=== PATIENT | female | born 1970 | race Caucasian/White ===

== ENCOUNTER → 2017-01-07 | Outpatient (CLI) | payer OTHER | LOC: NM 12:38 | DX: R11.0 Nausea (principal); R19.7 Diarrhea, unspecified | CPT/HCPCS: 78264 ==

== ENCOUNTER → 2020-10-14 | Outpatient (CLI) | payer BC, OTHER ==
[~2020-10-14] MED LIST: ALENDRONATE SOD10 MG PO; ALPRAZOLAM0.5 MG PO; BUTALB-ACETAMI1 EACH PO; CALCIUM CARBON600 MG PO; FENOFIBRATE160 MG PO; GABAPENTIN600 MG PO; IMITREX50 MG PO; LEVAQUIN500 MG PO; LEXAPRO10 MG PO; LIPITOR TAB 2020 MG PO; LISINOPRIL20 MG PO; LOPRESSOR 25 MG25 MG PO; MIRTAZAPINE30 MG PO; PREMARIN0.625 MG PO; PRINIVIL10 MG PO; PRISTIQ ER50 MG PO; REMERON30 MG PO; TOPAMAX 100 MG100 MG PO; TOPIRAMATE50 MG PO; VITAMIN D21250 MCG PO; WELLBUTRIN XL300 MG PO; ZANTAC150 MG PO
== END ==
LOC: KOH-I 10:00
DX: S92.511A Displaced fracture of proximal phalanx of right lesser toe(s), initial encounter for closed fracture (principal)
CPT/HCPCS: 73630

== ENCOUNTER → 2020-11-07 | Outpatient (CLI) | payer BC, OTHER | LOC: KOH-I 15:41 | DX: S92.911D Unspecified fracture of right toe(s), subsequent encounter for fracture with routine healing (principal) | CPT/HCPCS: 73630 ==

== ENCOUNTER → 2020-11-19 | Outpatient (CLI) | payer BC, OTHER | LOC: EXRD 12:48 | DX: Z00.00 Encounter for general adult medical examination without abnormal findings (principal); N95.1 Menopausal and female climacteric states; M85.832 Other specified disorders of bone density and structure, left forearm | CPT/HCPCS: 77080 ==

== ENCOUNTER → 2020-11-26 | Outpatient (CLI) | payer BC, OTHER | LOC: KOH-I 15:17 | DX: S92.351A Displaced fracture of fifth metatarsal bone, right foot, initial encounter for closed fracture (principal); S92.911A Unspecified fracture of right toe(s), initial encounter for closed fracture | CPT/HCPCS: 73630 ==

== ENCOUNTER → 2020-12-16 | Outpatient (CLI) | payer BC, OTHER | LOC: KOH-I 10:33 | DX: M25.571 Pain in right ankle and joints of right foot (principal); S92.351A Displaced fracture of fifth metatarsal bone, right foot, initial encounter for closed fracture | CPT/HCPCS: 73610; 73630 ==

== ENCOUNTER 2021-01-22 10:29 | Observation (INO) | payer BC, OTHER ==
[~2021-01-22] VITALS: Ht 165.1 cm; Wt 125.2 kg
[~2021-01-22 10:29] MED LIST changes: -ALENDRONATE SOD10 MG PO; -ALPRAZOLAM0.5 MG PO; -BUTALB-ACETAMI1 EACH PO; -CALCIUM CARBON600 MG PO; -GABAPENTIN600 MG PO; -IMITREX50 MG PO; -LEXAPRO10 MG PO; -LISINOPRIL20 MG PO; -LOPRESSOR 25 MG25 MG PO; -MIRTAZAPINE30 MG PO; -TOPAMAX 100 MG100 MG PO; -TOPIRAMATE50 MG PO; -VITAMIN D21250 MCG PO; -WELLBUTRIN XL300 MG PO
[2021-01-22 12:12] LABS: HEMOGLOBIN 13.2 gm/dl (12.3-15.3); RED BLOOD COUNT 4.67 M/UL (4.00-5.10); WHITE BLOOD COUNT 15.8 K/UL (4.5-11.0)
[2021-01-22 12:42] LABS: BUN/CREATININE RATIO 22 (0-10)
[2021-01-22] MEDS ORDERED: PREMARIN0.625 MG PO (13:13)
[2021-01-22] MEDS ORDERED: TOPIRAMATE50 MG PO (13:15)
[2021-01-22] MEDS ORDERED: FENOFIBRATE160 MG PO (13:16)
[2021-01-22] MEDS ORDERED: WELLBUTRIN XL300 MG PO (13:16)
[2021-01-22] MEDS ORDERED: LOPRESSOR 25 MG25 MG PO ×2 (13:17→15:58)
[2021-01-22] MEDS ORDERED: MIRTAZAPINE30 MG PO (13:17)
[2021-01-22] MEDS ORDERED: LEXAPRO10 MG PO (13:18)
[2021-01-22] MEDS ORDERED: ALENDRONATE SOD10 MG PO (13:19)
[2021-01-22] MEDS ORDERED: LISINOPRIL20 MG PO (13:19)
[2021-01-22] MEDS ORDERED: CALCIUM CARBON600 MG PO (13:25)
[2021-01-22] MEDS ORDERED: BUTALB-ACETAMI1 EACH PO (16:00)
[2021-01-22] MEDS ORDERED: ALPRAZOLAM0.5 MG PO (16:01)
[2021-01-22] MEDS ORDERED: GABAPENTIN600 MG PO (16:02)
[2021-01-22] MEDS ORDERED: VITAMIN D21250 MCG PO (16:03)
[2021-01-23] MEDS ORDERED: TOPAMAX 100 MG100 MG PO (08:44)
[2021-01-23] MEDS ORDERED: IMITREX50 MG PO (09:05)
[2021-03-24] MEDS ORDERED: IBU800 MG PO (09:08)
[2021-03-24] MEDS ORDERED: ZOFRAN ODT 4 MG4 MG PO (09:09)
[2021-03-24] MEDS ORDERED: RIZATRIPTAN10 M1 PO (09:11)
== END 2021-01-23 10:30 | disposition home or self-care (01) ==
LOC: ER1 10:29 → MED SURG 4 12:54 → CDU 12:54 → MED SURG 4 14:40
PROVIDERS: Family Medicine; ADMIT Internal Medicine
DX: R29.810 Facial weakness (principal); C91.10 Chronic lymphocytic leukemia of B-cell type not having achieved remission; I10 Essential (primary) hypertension; E78.5 Hyperlipidemia, unspecified; G43.909 Migraine, unspecified, not intractable, without status migrainosus; F41.9 Anxiety disorder, unspecified; F32.9 Major depressive disorder, single episode, unspecified; Z20.822 Contact with and (suspected) exposure to COVID-19; Z79.899 Other long term (current) drug therapy; Z88.0 Allergy status to penicillin; Z88.1 Allergy status to other antibiotic agents; Z87.891 Personal history of nicotine dependence; Z86.73 Personal history of transient ischemic attack (TIA), and cerebral infarction without residual deficits
CPT/HCPCS: 70450; 70551; 80053; 81001; 82550; 82553; 83874; 84484; 85025; 93005; 93880; 96374; 96375; 96376; 99285; G0378; J2270; J2405; U0002

== ENCOUNTER → 2021-01-28 | Outpatient (CLI) | payer BC ==
[~2021-01-28] MED LIST changes: +ALENDRONATE SOD10 MG PO; +ALPRAZOLAM0.5 MG PO; +BUTALB-ACETAMI1 EACH PO; +CALCIUM CARBON600 MG PO; +GABAPENTIN600 MG PO; +IBU800 MG PO; +IMITREX50 MG PO; +LEXAPRO10 MG PO; +LISINOPRIL20 MG PO; +LOPRESSOR 25 MG25 MG PO; +MIRTAZAPINE30 MG PO; +RIZATRIPTAN10 M1 PO; +TOPAMAX 100 MG100 MG PO; +TOPIRAMATE50 MG PO; +VITAMIN D21250 MCG PO; +WELLBUTRIN XL300 MG PO; +ZOFRAN ODT 4 MG4 MG PO
== END ==
LOC: KOH-I 10:59
DX: S92.911D Unspecified fracture of right toe(s), subsequent encounter for fracture with routine healing (principal)
CPT/HCPCS: 73610; 73630

== ENCOUNTER → 2021-02-07 | Outpatient (CLI) | payer BC | LOC: EMI 08:21 | DX: S82.51XA Displaced fracture of medial malleolus of right tibia, initial encounter for closed fracture (principal); S92.351A Displaced fracture of fifth metatarsal bone, right foot, initial encounter for closed fracture | CPT/HCPCS: 73718; 73721 ==

== ENCOUNTER → 2021-03-24 | Outpatient (CLI) | payer BC ==
[2021-03-24 08:02] LABS: HEMOGLOBIN 12.8 gm/dl (12.3-15.3); RED BLOOD COUNT 4.29 M/UL (4.00-5.10); WHITE BLOOD COUNT 13.9 K/UL (4.5-11.0)
== END ==
LOC: OPSV2 07:26
PROVIDERS: Podiatrist Foot & Ankle Surgery
DX: Z01.812 Encounter for preprocedural laboratory examination (principal)
CPT/HCPCS: 36415; 80048; 85027

== ENCOUNTER 2021-04-28 21:11 | Emergency (ER) | payer BC ==
[2021-04-29] MEDS ORDERED: PERCOCET 5-3251 EACH PO (01:46)
== END 2021-04-29 04:14 | disposition home or self-care (01) ==
LOC: ER1 21:11
DX: S82.432A Displaced oblique fracture of shaft of left fibula, initial encounter for closed fracture (principal); X50.1XXA Overexertion from prolonged static or awkward postures, initial encounter; Y92.009 Unspecified place in unspecified non-institutional (private) residence as the place of occurrence of the external cause
CPT/HCPCS: 27840; 73610; 96374; 96375; 99152; 99283; J1170; J2405; J2704

== ENCOUNTER 2021-08-15 22:50 | Inpatient (IN) | payer BC ==
[~2021-08-15] VITALS: Ht 165.1 cm; Wt 93.0 kg
[~2021-08-15 22:50] MED LIST changes: -LEXAPRO10 MG PO; +LEXAPRO20 MG PO; +PERCOCET 5-3251 EACH PO
[2021-08-15 23:34] LABS: HEMOGLOBIN 12.5 gm/dl (12.3-15.3); RED BLOOD COUNT 4.16 M/UL (4.00-5.10); WHITE BLOOD COUNT 14.6 K/UL (4.5-11.0)
[2021-08-16 00:07] LABS: BUN/CREATININE RATIO 19 (0-10)
[2021-08-16] MEDS ORDERED: BENZONATATE200 MG PO (10:15)
[2021-08-16] MEDS ORDERED: PROMETHAZINE HC25 M1 PO (10:17)
[2021-08-16] MEDS ORDERED: SUMATRIPTAN SUC50 MG PO (10:18)
[2021-08-16] MEDS ORDERED: TOPIRAMATE50 MG PO ×2 (10:19)
[2021-08-16] MEDS ORDERED: TYLENOL EXTRA500 MG PO (10:20)
[2021-08-16] MEDS ORDERED: MULTIVITAMIN1 EACH PO (10:20)
[2021-08-17 07:52] LABS: HEMOGLOBIN 11.2 gm/dl (12.3-15.3); RED BLOOD COUNT 3.82 M/UL (4.00-5.10)
[2021-08-17 08:08] LABS: WHITE BLOOD COUNT 8.9 K/UL (4.5-11.0)
[2021-08-18 04:53] LABS: HEMOGLOBIN 11.1 gm/dl (12.3-15.3); RED BLOOD COUNT 3.74 M/UL (4.00-5.10)
[2021-08-18 05:23] LABS: WHITE BLOOD COUNT 11.2 K/UL (4.5-11.0)
[2021-08-19 04:47] LABS: HEMOGLOBIN 11.3 gm/dl (12.3-15.3); RED BLOOD COUNT 3.84 M/UL (4.00-5.10)
[2021-08-20 06:51] LABS: HEMOGLOBIN 11.4 gm/dl (12.3-15.3); RED BLOOD COUNT 3.85 M/UL (4.00-5.10)
[2021-08-20 07:00] LABS: WHITE BLOOD COUNT 17.1 K/UL (4.5-11.0)
[2021-08-20] MEDS ORDERED: PROAIR HFA8.5 GM INH (08:59)
[2021-08-20] MEDS ORDERED: DECADRON6 MG PO (08:59)
== END 2021-08-20 15:13 | disposition home or self-care (01) | DRG 682 ==
LOC: ER1 22:50 → M/S 08-16 07:50 → CDU 08-16 07:50 → M/S 08-16 13:13
PROVIDERS: Internal Medicine; Physician Assistant; Physician Assistant Medical; Preventive Medicine Occupational Medicine; ADMIT Internal Medicine
PROC: 8E0ZXY6 Isolation (ICD-10-PCS; principal; 2021-08-16)
PROC: 3E0333Z Introduction of Anti-inflammatory into Peripheral Vein, Percutaneous Approach (ICD-10-PCS; 2021-08-16)
PROC: XW033E5 Introduction of Remdesivir Anti-infective into Peripheral Vein, Percutaneous Approach, New Technology Group 5 (ICD-10-PCS; 2021-08-16)
DX: N17.9 Acute kidney failure, unspecified (principal); U07.1 COVID-19; J96.01 Acute respiratory failure with hypoxia; G43.909 Migraine, unspecified, not intractable, without status migrainosus; F41.9 Anxiety disorder, unspecified; I95.9 Hypotension, unspecified; I12.9 Hypertensive chronic kidney disease with stage 1 through stage 4 chronic kidney disease, or unspecified chronic kidney disease; N18.30 Chronic kidney disease, stage 3 unspecified; F32.A Depression, unspecified; E66.01 Morbid (severe) obesity due to excess calories; E78.5 Hyperlipidemia, unspecified; Z85.6 Personal history of leukemia; Z86.73 Personal history of transient ischemic attack (TIA), and cerebral infarction without residual deficits; Z90.710 Acquired absence of both cervix and uterus; Z88.1 Allergy status to other antibiotic agents; Z88.0 Allergy status to penicillin; Z82.49 Family history of ischemic heart disease and other diseases of the circulatory system; Z80.3 Family history of malignant neoplasm of breast; Z90.13 Acquired absence of bilateral breasts and nipples; Z68.39 Body mass index [BMI] 39.0-39.9, adult; Z87.891 Personal history of nicotine dependence
CPT/HCPCS: 0240U; 36415; 36600; 71045; 71046; 80048; 80053; 82550; 82553; 82803; 83735; 83880; 84484; 85025; 85027; 85379; 93005; 94640; 94664; 94760; 96374; 99285; J0248; J1100; J1650; J7030

== ENCOUNTER → 2021-11-03 | Outpatient (CLI) | payer BC ==
[~2021-11-03] MED LIST changes: +BENZONATATE200 MG PO; +DECADRON6 MG PO; +MULTIVITAMIN1 EACH PO; +PROAIR HFA8.5 GM INH; +PROMETHAZINE HC25 M1 PO; +SUMATRIPTAN SUC50 MG PO; +TYLENOL EXTRA500 MG PO
== END ==
LOC: KOH-I 08:27
DX: C91.10 Chronic lymphocytic leukemia of B-cell type not having achieved remission (principal); R59.0 Localized enlarged lymph nodes
CPT/HCPCS: 74176

== ENCOUNTER 2022-04-04 18:34 | Emergency (ER) | payer BC ==
[2022-04-04 19:55] LABS: HEMOGLOBIN 12.2 gm/dl (12.3-15.3); RED BLOOD COUNT 4.18 M/UL (4.00-5.10)
[2022-04-04 20:10] LABS: WHITE BLOOD COUNT 30.8 K/UL (4.5-11.0)
[2022-04-04] MEDS ORDERED: PAXLOVID 150-11 EACH PO (22:08)
== END 2022-04-04 22:16 | disposition home or self-care (01) ==
LOC: ER1 18:34
DX: U07.1 COVID-19 (principal); N28.9 Disorder of kidney and ureter, unspecified; C91.10 Chronic lymphocytic leukemia of B-cell type not having achieved remission; I10 Essential (primary) hypertension; Z88.0 Allergy status to penicillin; Z88.1 Allergy status to other antibiotic agents
CPT/HCPCS: 71045; 80053; 81001; 83605; 83690; 85025; 85610; 87040; 93005; 99284; U0002